=== PATIENT | female | born 1955 | race Caucasian/White ===

== ENCOUNTER 2017-02-10 10:25 | Emergency (ER) | payer OTHER ==
[2017-02-10 10:34] VITALS: BP 138/97; PULSE 88; TEMP 98.7; BMI 26.6
--- NOTE | 2017-02-10 10:41 | PDOC ---
History of Present Illness - General Chief Complaint: Eye Problem Stated Complaint: LEFT EYELID REDNESS Time Seen by Provider: 02/10/17 10:31 History Source: Patient Exam Limitations: No Limitations - History of Present Illness Initial Comments: 02/10/17 10:36 61 y/o female with left upper eyelid swelling for several days, getting worse. Has had this problem in the past. No vision problems. No fever or chills. Has Erythromycin ointment at home and eye drops as well. Denies fall or trauma. Severity: mild Past History - Past Medical History Allergies/Adverse Reactions: Allergies Allergy/AdvReac Type Severity Reaction Status Date / Time No Known Allergies Allergy Verified 02/10/17 10:27 Home Medications: Ambulatory Orders Albuterol Sulfate Inhaler - [Ventolin Hfa Inhaler -] 1 - 2 inh PO ASDIR Cephalexin [Keflex] 500 mg PO TID #15 capsule 02/10/17 Erythromycin 0.5% Eye Ointment [Erythromycin 0.5% Eye Ointment -] 1 applic ASDIR 02/10/17 Mitchel/Polymyx B Sulf/Dexameth [Maxitrol Eye Drops -] 1 drop ONCE 02/10/17 Asthma: Yes Psychiatric Problems: Yes - Psycho/Social/Smoking Cessation Hx Anxiety: No Suicidal Ideation: No Smoking History: Never smoked Have you smoked in the past 12 months: No Information on smoking cessation initiated: No Hx Alcohol Use: No Drug/Substance Use Hx: No Substance Use Type: None Review of Systems - Review of Systems Able to Perform ROS?: Yes Is the patient limited Guatemalan proficient: No Constitutional: No: Chills, Fever HEENTM: No: Eye Pain, Blurred Vision, Double Vision Respiratory: No: Cough, Shortness of Breath Cardiac (ROS): No: Chest Pain ABD/GI: No: Nausea, Vomiting All Other Systems: Reviewed and Negative *Physical Exam - Vital Signs Last Vital Signs Temp Pulse Resp BP Pulse Ox 98.7 F 88 16 138/97 97 02/10/17 10:25 02/10/17 10:25 02/10/17 10:25 02/10/17 10:25 02/10/17 10:25 - Physical Exam General Appearance: Yes: Nourished, Appropriately Dressed. No: Apparent Distress HEENT: positive: EOMI, LISA, Normal ENT Inspection (left upper eyelid with swelling and redness, no drainage noted, small stye noted on left upper eyelid, no vesicles or pustules noted), Pharynx Normal. negative: Normal Voice (raspy voice), Pharyngeal Erythema, Nasal Congestion, Rhinorrhea, Sinus Tenderness Neck: positive: Trachea midline, Supple Respiratory/Chest: positive: Lungs Clear, Normal Breath Sounds Cardiovascular: positive: Regular Rhythm, Regular Rate, S1, S2. negative: Murmur Vascular Pulses: Femoral (R): 4+, Femoral (L): 4+, Carotid (R): 4+, Carotid (L) : 4+, Dorsalis-Pedis (R): 4+, Doralis-Pedis (L): 4+ Lymphatic: negative: Adenopathy, Tenderness, Other Musculoskeletal: positive: Normal Inspection. negative: CVA Tenderness Extremity: positive: Normal Capillary Refill, Normal Inspection, Normal Range of Motion Integumentary: positive: Normal Color, Dry, Warm, Erythema, Swelling (swelling and redness to left upper eyelid). negative: Ecchymosis, Bruising Neurologic: positive: vegetable handler II-XII NML intact, Fully Oriented, Alert, Normal Mood/ Affect, Normal Response, Motor Strength 5/ ED Treatment Course - ADDITIONAL ORDERS Additional order review: 02/10/17 10:40 Pt appears to have a left upper eyelid blepharits Can continue eye drops and Erythromycin ointment Will place on Keflex and warm compress to eyelid If worsen follow up with Manager Of Disaster Recovery 02/10/17 10:43 I do not see any herpetic lesions at this time on eyelid *DC/Admit/Observation/Transfer Diagnosis at time of Disposition: Blepharitis of eyelid of left eye Qualifiers: Blepharitis type: unspecified type Eyelid: upper Qualified Code(s): H01.004 - Unspecified blepharitis left upper eyelid - Discharge Dispostion Disposition: HOME Condition at time of disposition: Stable Admit: No - Prescriptions Prescriptions: Cephalexin [Keflex] 500 mg PO TID #15 capsule - Referrals Referrals: Aleksandar Vernon MD [Staff Physician] - - Patient Instructions Printed Discharge Instructions: DI for Blepharitis Additional Instructions: Warm compress to left eyelid 3-4 x/day for 10-15 minutes Keflex 500mg 3x/day for 5 days Continue Erythromycin ointment 2x/day for 1 week to affected eye If worsen follow up with Eye doctor
== END 2017-02-10 10:54 | disposition home or self-care (01) ==
LOC: FER 10:25
DX: H01.004 Unspecified blepharitis left upper eyelid (principal); J45.909 Unspecified asthma, uncomplicated
CPT/HCPCS: 99282-25

== ENCOUNTER 2017-07-12 17:03 | Emergency (ER) | payer OTHER ==
[2017-07-12 17:12] VITALS: BMI 25.8
[2017-07-12] MEDS ORDERED: IBUPROFEN 600 MG TABLET (FP) PO ONE ×2 (17:23→17:38)
[2017-07-12] MEDS ORDERED: predniSONE 20 MG TABLET (UD) PO ONE (17:23)
--- NOTE | 2017-07-12 17:23 | PDOC ---
History of Present Illness - History of Present Illness Initial Comments: 07/12/17 17:34 62 y/o F with a PMH of asthma, HTN, thyroid disease, anxiety presents to the ED with weakness for 3 days. Patient reports associated dry mouth, runny nose, sore throat, fever, chills. She also reports some shortness of breath. Patient reports taking Claritin D and Emergen-C with no relief. She denies nausea, vomiting, diarrhea. Denies chest pain. Denies urinary complaints. <Tala Bello - Last Filed: 07/12/17 17:34> <Pita Mcghee - Last Filed: 07/12/17 18:37> - General Chief Complaint: Cold Symptoms Stated Complaint: cough, weakness Time Seen by Provider: 07/12/17 17:06 Past History <Tala Bello - Last Filed: 07/12/17 17:34> - Past Medical History Asthma: Yes COPD: No HTN: Yes Psychiatric Problems: Yes (anixety) Thyroid Disease: Yes - Suicide/Smoking/Psychosocial Hx Smoking History: Never smoked Have you smoked in the past 12 months: No Hx Alcohol Use: No Drug/Substance Use Hx: No Substance Use Type: None <Pita Mcghee - Last Filed: 07/12/17 18:37> - Past Medical History Allergies/Adverse Reactions: Allergies Allergy/AdvReac Type Severity Reaction Status Date / Time No Known Allergies Allergy Verified 07/12/17 17:03 Home Medications: Ambulatory Orders Amlodipine Besylate [Norvasc -] 5 mg PO DAILY 07/12/17 Levothyroxine [Synthroid -] 75 mcg PO DAILY 07/12/17 Perphenazine [Trilafon] 2 mg PO DAILY 07/12/17 Prednisone [Deltasone -] 40 mg PO DAILY #8 tablet 07/12/17 Review of Systems - Review of Systems Comments:: 07/12/17 17:34 GENERAL/CONSTITUTIONAL: (+) fever, chills, weakness. HEAD, EYES, EARS, NOSE AND THROAT: (+) dry mouth, runny nose, sore throat. No change in vision. No ear pain or discharge. CARDIOVASCULAR: (+) shortness of breath. No chest pain. RESPIRATORY: No cough, wheezing, or hemoptysis. GASTROINTESTINAL: No nausea, vomiting, diarrhea or constipation. GENITOURINARY: No dysuria, frequency, or change in urination. MUSCULOSKELETAL: No joint or muscle swelling or pain. No neck or back pain. SKIN: No rash NEUROLOGIC: No headache, vertigo, loss of consciousness, or change in strength/ sensation. ENDOCRINE: No increased thirst. No abnormal weight change. HEMATOLOGIC/LYMPHATIC: No anemia, easy bleeding, or history of blood clots. ALLERGIC/IMMUNOLOGIC: No hives or skin allergy. <Tala Bello - Last Filed: 07/12/17 17:34> *Physical Exam - Vital Signs Last Vital Signs Temp Pulse Resp BP Pulse Ox 98.2 F 114 H 18 139/94 98 07/12/17 17:03 07/12/17 17:03 07/12/17 17:03 07/12/17 17:03 07/12/17 17:03 <Tala Bello - Last Filed: 07/12/17 17:34> - Vital Signs Last Vital Signs Temp Pulse Resp BP Pulse Ox 98.2 F 114 H 18 139/94 98 07/12/17 17:03 07/12/17 17:03 07/12/17 17:03 07/12/17 17:03 07/12/17 17:03 - Physical Exam Comments: GENERAL: Awake, alert, and fully oriented, in no acute distress HEAD: No signs of trauma EYES: PERRLA, EOMI, sclera anicteric, conjunctiva clear ENT: Auricles normal inspection, hearing grossly normal, nares patent, oropharynx clear without exudates. Moist mucosa NECK: Normal ROM, supple, no lymphadenopathy, JVD, or masses LUNGS: Slightly dec air entry B/L with scattered rhonchi. HEART: Regular rate and rhythm, normal S1 and S2, no murmurs, rubs or gallops ABDOMEN: Soft, nontender, normoactive bowel sounds. No guarding, no rebound. No masses EXTREMITIES: Normal range of motion, no edema. No clubbing or cyanosis. No cords, erythema, or tenderness NEUROLOGICAL: Cranial nerves II through XII grossly intact. Normal speech, normal gait SKIN: Warm, Dry, normal turgor, no rashes or lesions noted. <Pita Mcghee - Last Filed: 07/12/17 18:37> Medical Decision Making - Medical Decision Making 07/12/17 18:36 CXR with no focal consolidation. Encouraged her to drink plenty of fluids. Fever control with motrin as needed. Stable for DC home. <Pita Mcghee - Last Filed: 07/12/17 18:37> *DC/Admit/Observation/Transfer - Attestations Scribe Attestion: 07/12/17 17:34 Documentation prepared by Tala Bello, acting as medical payment poster for Pita Mcghee MD. <Tala Bello - Last Filed: 07/12/17 17:34> - Discharge Dispostion Admit: No <Pita Mcghee - Last Filed: 07/12/17 18:37> Diagnosis at time of Disposition: Viral syndrome - Discharge Dispostion Disposition: HOME Condition at time of disposition: Stable - Prescriptions Prescriptions: Prednisone [Deltasone -] 40 mg PO DAILY #8 tablet - Patient Instructions Printed Discharge Instructions: DI for Viral Upper Respiratory Infection -- Adult Additional Instructions: Drink plenty of fluids. Neb treatments as needed. Prednisone to prevent worsening asthma symptoms. Tylenol or motrin for body aches and chills.
[2017-07-12] MEDS ORDERED: predniSONE 20 MG TABLET (UD) ONE (17:38)
[2017-07-12] MEDS: ALBUTEROL SO4 2.5/IPRATROPIUM 0.5 INH SOL 3 ML VIAL.NEB. NEB SCH ×3 (17:43→18:24)
[2017-07-12 18:32] VITALS: BP 126/86; PULSE 97; TEMP 98.6
== END 2017-07-12 18:46 | disposition home or self-care (01) ==
LOC: FER 17:03
DX: B34.9 Viral infection, unspecified (principal); I10 Essential (primary) hypertension; J45.909 Unspecified asthma, uncomplicated; E07.9 Disorder of thyroid, unspecified; F41.9 Anxiety disorder, unspecified
CPT/HCPCS: 71045-TC; 99281-25

== ENCOUNTER 2017-09-30 11:18 | Emergency (ER) | payer OTHER ==
[2017-09-30 11:25] VITALS: BP 124/95; PULSE 78; TEMP 97.5; BMI 26.5
--- NOTE | 2017-09-30 12:37 | PDOC ---
History of Present Illness - General Chief Complaint: Edema Stated Complaint: SWOLLEN ANKLE Time Seen by Provider: 09/30/17 11:59 History Source: Patient - History of Present Illness Occurred: reports: other Severity: Yes: moderate Lower Extremity Pain Location: left: ankle Past History - Past Medical History Allergies/Adverse Reactions: Allergies Allergy/AdvReac Type Severity Reaction Status Date / Time No Known Allergies Allergy Verified 09/30/17 11:22 Home Medications: Ambulatory Orders Amlodipine Besylate [Norvasc -] 5 mg PO DAILY 07/12/17 Levothyroxine [Synthroid -] 75 mcg PO DAILY 07/12/17 Asthma: Yes COPD: No HTN: Yes Psychiatric Problems: Yes (anixety) Thyroid Disease: Yes - Immunization History Immunization Up to Date: Yes - Suicide/Smoking/Psychosocial Hx Smoking History: Never smoked Have you smoked in the past 12 months: No Information on smoking cessation initiated: No Hx Alcohol Use: No Drug/Substance Use Hx: No Substance Use Type: None Review of Systems - Review of Systems Constitutional: No: Chills, Fever Musculoskeletal: Yes: Joint Pain. No: Joint Swelling *Physical Exam - Vital Signs Last Vital Signs Temp Pulse Resp BP Pulse Ox 97.5 F L 78 17 124/95 99 09/30/17 11:22 09/30/17 11:22 09/30/17 11:22 09/30/17 11:22 09/30/17 11:22 - Physical Exam General Appearance: Yes: Appropriately Dressed. No: Apparent Distress HEENT: positive: Normal Voice Neck: positive: Supple Respiratory/Chest: negative: Respiratory Distress Extremity: positive: Other (no joint swelling, pain w/ ROM of ankle) Integumentary: positive: Dry, Warm Neurologic: positive: Fully Oriented, Alert, Normal Mood/Affect Medical Decision Making - Medical Decision Making 09/30/17 12:31 62-year-old female, chronic left ankle pain, here complaining of her usual left ankle pain. Patient states in the past, she was told ankle pain was secondary to arthritis and underwent physical therapy with resolution of symptoms but states for the past 4 months pain reoccurred and mostly present when bearing weight. Taking [id number] meds with some relief. Has not yet been evaluated by her PMD for same and currently does not have any orthopedic. Also c/o localized swelling to medial L ankle x 1 week, no pain to site. No recent trauma. States she already has upcoming appt for evaluation for this. See exam Acute on chronic L ankle pain Dx w/ arthritis in past and underwent PT No swelling/ttp to L ankle joint, +pain diffusely w/ ROM, able to bear weight in ED -dc w/ otc pain control and ortho referral Localized swelling to medial L ankle Has ~0.5cm soft, rubbery, mobile, non-tender mass to medial aspect of L ankle ?lipoma vs cyst, no e/o abscess/infxn -has upcoming podiatry appt for evaluation *DC/Admit/Observation/Transfer Diagnosis at time of Disposition: Ankle pain, left Qualifiers: Chronicity: chronic Qualified Code(s): M25.572 - Pain in left ankle and joints of left foot; G89.29 - Other chronic pain; G89.29 - Other chronic pain - Discharge Dispostion Disposition: HOME Condition at time of disposition: Good - Referrals - Patient Instructions Printed Discharge Instructions: DI for Ankle Pain Additional Instructions: Please continue taking Motrin or Tylenol for pain as needed at home. Follow-up with Dr. Gomez of orthopedics for your chronic ankle pain. Please follow-up with your scheduled appointment with podiatry regarding ankle swelling - Post Discharge Activity
== END 2017-09-30 12:32 | disposition home or self-care (01) ==
LOC: JERFT 11:18
DX: M25.572 Pain in left ankle and joints of left foot (principal); G89.29 Other chronic pain
CPT/HCPCS: 99281-25